=== PATIENT | male | born 1970 | race African-American/Black ===

== ENCOUNTER 2016-12-22 10:51 | Emergency (ER) ==
[2016-12-22] MEDS ORDERED: NORFLEX IM ONE (11:59)
[2016-12-22] MEDS ORDERED: TORADOL IM ONE (11:59)
--- NOTE | 2016-12-22 12:01 | PROVIDER DOCUMENTATION ---
HPI-Musculoskeletal Pain/Inj - GENERAL Chief Complaint: Extremity Pain Stated Complaint: RT THIGH INJURY Time Seen by Provider: 12/22/16 11:07 Source: patient - HX OF PRESENT ILLNESS-MUSKULOSKELTAL Nature of Presenting Problem: Pt is a 45 y/o M c chief complaint of muscle strain and quadraceps pain after he was doing martial arts stretching yesterday. Pt states his muscles in his anterior R thigh became acutely inflamed and painful after he was attempting a unique martial arts stretch. Pt denies any fall or traumatic injury. he has full ROM at his hip and knee. On arrival, pt is in minimal distress. Review of Systems - Adult - REVIEW OF SYSTEMS - ADULT Constitutional: reports: no symptoms reported. denies: chills, fatique Eyes: reports: no symptoms reported. denies: blurred vision, double vision Ears, Nose, Mouth & Throat: reports: no symptoms reported. denies: ear pain, nose pain Cardiovascular: reports: no symptoms reported. denies: chest pain, orthopnea Respiratory: reports: no symptoms reported. denies: cough, shortness of breath Gastrointestinal: reports: no symptoms reported. denies: abdominal pain, nausea Genitourinary: reports: no symptoms reported Musculoskeletal: reports: muscle aches. denies: bone pain, joint pain, joint swelling Integumentary: reports: no symptoms reported. denies: itching, rash Neurological: reports: no symptoms reported. denies: numbness, paresthesia Psychiatric: reports: no symptoms reported. denies: anxiety, emotional problems Endocrine: reports: no symptoms reported. denies: cold intolerance, heat intolerance Hematologic/Lymphatic: reports: no symptoms reported. denies: blood clots, low blood count Allergic/Immunologic: reports: no symptoms reported. denies: allergic reactions , frequent infections All Other Systems: Reviewed and Negative Past History - Adult - PAST MEDICAL HISTORY-ADULT Review of Records: reports: Old Records Reviewed, Nursing Assessment Review, Medications Reviewed, Social history reviewed & non-contributory. Major Childhood Illnesses: reports: denies history Cardiovascular: reports: HTN, [place] Respiratory: reports: asthma Gastrointestinal: reports: GERD Obstetrical/Gynecological: reports: denies history Genitourinary: reports: cancer (testicular) Musculoskeletal: reports: denies history Neurological: reports: denies history Endocrine/Immune: reports: denies history Other Conditions: reports: cataract/glaucoma (glaucoma) - PRIOR SURGERIES/PROCEDURES Surgical/Procedure History: reports: other (chostachandoritis) - IMMUNIZATION STATUS Childhood Immunizations: See Nurse Assessment Flu Vaccine: See Nurse Assessment - FAMILY HISTORY Family History: reviewed, not pertinent - SOCIAL HISTORY Smoking: denies Substance Use: none/never Alcohol Use Frequency: never Living Situation: family Physical Exam-Injury Related - Physical Exam-Injury Related Initial Vital Signs Reviewed: Yes General Appearance: appears well, alert, no apparent distress Eyes: PERRL/EOMI, pink conjunctivae Head, Ears, Nose, Mouth & Throat: normocephalic/atraumatic, moist mucous membranes, normal ENT inspection Neck: non-tender, full range of motion, supple Respiratory: chest non-tender, lungs clear, normal breath sounds Cardiovascular: normal peripheral pulses, regular rate, rhythm, no edema Chest/Breast: deferred Abdominal Exam: normal bowel sounds, non tender, soft Back Exam: normal inspection, no CVA tenderness, no vertebral tenderness Extremity: swelling (R anterior quadraceps region), tenderness Integumentary: normal color, warm/dry, blanching Neurologic: grossly normal, no motor/sensory deficits Psych/Mental Status: normal mood/affect, normal thought content, normal thought process - Glascow Coma Score Best Eye Response (Boo): (4) open spontaneously Best Verbal Response (Boo): (5) oriented Best Motor Response (Boo): (6) obeys commands Progress - PLAN OF CARE/RESULTS Progress/Plan/Lab Results: Orders Category Date Time Status Bruno Wrap Application DIRECTED Care 12/22/16 11:59 Active Crutches DIRECTED Care 12/22/16 11:59 Active Ketorolac [Toradol] Med 12/22/16 11:59 Discontinued 60 mg IM NOW ONE Orphenadrine [Norflex] Med 12/22/16 11:59 Discontinued 60 mg IM NOW ONE Vital Signs - 24 hr 12/22/16 12/22/16 12/22/16 10:54 12:23 13:22 Temperature 98.4 F Pulse Rate 96 H 78 98 H Respiratory 16 18 18 Rate Blood Pressure 152/94 146/72 145/90 O2 Sat by Pulse 100 100 99 Oximetry Departure - Departure Time of Disposition Order: 12:00 DIAGNOSIS: Quadriceps strain Qualifiers: Encounter type: initial encounter Laterality: right Qualified Code(s): S76.111A - Strain of right quadriceps muscle, fascia and tendon, initial encounter Disposition: HOME 01 Certified Medical Emergency: Emergent Condition: Stable Additional Instructions: ED Follow Up Instructions: You have been treated by a care provider in the Emergency Department. These instructions are being provided to you so you can have an understanding of how to care for yourself upon discharge. Upon discharge from the Emergency Department, you are responsible for making arrangements for follow-up care by a physician of your choice. Take all prescribed medications as directed. Return to the Emergency Department immediately for any new or worsening symptoms. You may call the Physician Referral phone number at [phone] to obtain a list of Physicians who are taking new patients. Prescriptions: Cyclobenzaprine [Flexeril] 10 mg PO TID #20 tablet Ibuprofen [Motrin] 800 mg PO Q8H PRN PRN #20 tablet PRN Reason: inflammation Omeprazole [Prilosec] 20 mg PO DAILY@0700 #20 capsule Referrals: Alicia Driscoll MD [STAFF PHYSICIAN] - Call for Appoint. -1 week Instructions: Quadriceps Strain with Rehab-SportsMed Attestation - Physician/ MIGUEL Attestation Patient care was provided by Advanced Practice Provider:: Yes Advanced Practice Provider:: Viktor Olvera Advanced Practice Provider documentation review:: The Mid-level provider documentation, treatment plan and medical decision making was reviewed by the physician who agrees with all treatment and medical decision making by the MLP.
[2016-12-22 13:23] VITALS: BP 145/90
== END 2016-12-22 13:23 | disposition home or self-care (01) ==
LOC: ED 10:51
DX: S76.111A Strain of right quadriceps muscle, fascia and tendon, initial encounter (principal); M79.651 Pain in right thigh; M79.1 Myalgia; R22.41 Localized swelling, mass and lump, right lower limb; I10 Essential (primary) hypertension; I25.2 Old myocardial infarction; J45.909 Unspecified asthma, uncomplicated; Z85.47 Personal history of malignant neoplasm of testis
CPT/HCPCS: J1885; J2360

== ENCOUNTER 2018-11-15 18:13 | Inpatient (IN) ==
[2018-11-15] MEDS ORDERED: MORPHINE IV ONE (22:06)
[2018-11-15] MEDS ORDERED: TORADOL IV ONE (22:17)
[2018-11-15] MEDS: ZOSYN 4.5 GM in NS 100 ML IV ONE (22:34)
[2018-11-15 22:46] LABS: BASO# 0.03 X1000 (0.0-0.2); BASO% 0.3 % (0.0-0.8); EOS# 0.13 X1000 (0.0-0.7); EOS% 1.1 % (0.0-10.0); HEMOGLOBIN 12.1 g/dL (14.0-18.0); IMM GRAN# 0.03 X1000 (0.0-0.04); IMM GRAN% 0.3 % (0.0-0.5); MCH 26.8 PG (27-31); MCHC 32.7 g/dL (33-37); MCV 81.9 FL (81-99); MONO# 1.23 X1000 (0.11-0.59); MONO% 10.6 % (1.7-9.3); MPV 9.8 FL (7.4-10.4); NEUT# 7.43 X1000 (1.4-6.5); NEUT% 63.7 % (42.2-75.2); PLT 314 X1000 (130-400); RBC 4.52 XMIL (4.7-6.1); RDW 15.3 % (11.5-14.5); WBC 11.65 X1000 (4.8-10.8)
[2018-11-15 23:02] LABS: AGAP 9; BUN 21 mg/dL (8-22); CALCIUM 9.1 mg/dL (8.8-10.2); CHLORIDE 101 mmol/L (98-107); COSMO 273; CREATININE 0.6 mg/dL (0.7-1.2); ESTIMATED GFR > 60; GLUCOSE 98 mg/dL (70-104); POTASSIUM 4.4 mmol/L (3.5-5.1); SODIUM 135 mmol/L (136-145); TCO2 25 mmol/L (25-35)
[2018-11-16] MEDS ORDERED: NORCO-7.5 PO PRN (00:48)
[2018-11-16] MEDS ORDERED: ZOFRAN IV PRN (00:48)
[2018-11-16] MEDS ORDERED: TYLENOL PO PRN (00:48)
[2018-11-16] MEDS ORDERED: VANCOMYCIN IV PER PHARMACY MISC SCH (01:00)
[2018-11-16] MEDS ORDERED: NS 1,000 ML IV SCH (01:00)
[2018-11-16] MEDS ORDERED: CLINDAMYCIN 600 MG/D5W 600 MG/50 ML IVPB IV SCH (01:00)
[2018-11-16] MEDS ORDERED: LOVENOX SUBQ SCH (01:00)
[2018-11-16] MEDS ORDERED: VANCOMYCIN 2,200 MG in NS 500 ML IV ONE (03:00)
[2018-11-16 04:45] LABS: UR AMPHETAMINES QUAL PRESUMPTIVE POSITIVE (NONE DETECT); UR BARBITUATES QUAL NONE DETECTED (NONE DETECT); UR BENZODIAZEPIN QUAL NONE DETECTED (NONE DETECT); UR CANNABINOIDS QUAL NONE DETECTED (NONE DETECT); UR COCAINE QUAL NONE DETECTED (NONE DETECT); UR METHADONE QUAL NONE DETECTED (NONE DETECT); UR OPIATES QUAL NONE DETECTED (NONE DETECT); UR OXYCODONE QUAL NONE DETECTED (NONE DETECT); UR PCP QUAL NONE DETECTED (NONE DETECT)
--- NOTE | 2018-11-16 06:42 | HISTORY AND PHYSICAL ---
CHIEF COMPLAINT: Right hand pain and swelling. HISTORY OF PRESENT ILLNESS: Patient comes in today after having originally foot pain and then pain in his left hand. He has a history of amphetamine drug abuse. He has previously been positive for amphetamines, methamphetamine and cocaine. He was a very poor historian, but appears to have a past medical history of coronary artery disease, hypertension, costochondritis, and tobacco abuse as well. X-ray of the hand primarily just showed soft tissue swelling. He will be admitted inpatient for left hand cellulitis. PAST MEDICAL HISTORY: See HPI. PREVIOUS SURGICAL HISTORY: Patient denies surgical history. SOCIAL HISTORY: Denies illicit drug use. He has tested positive for amphetamines, cocaine and methamphetamine. He states that he smokes about 10-12 cigars a day and drinks roughly two beers a day. FAMILY HISTORY: The patient denies any family illness in first-degree relatives. He states everybody has been healthy. ALLERGIES: Amlodipine and sulfa. HOME MEDICATIONS: Patient denies taking any home medication. REVIEW OF SYSTEMS: Patient denies any complaints other than left hand pain and edema. He did mention left foot pain when he awoke yesterday but that has subsided. A 14 point review was conducted with the patient. All other systems reviewed and negative. PHYSICAL EXAM: VITAL SIGNS: Temperature 98.4 degrees Fahrenheit, pulse 81, res 15, blood pressure 120/85. Oxygen saturation 100% on room air. GENERAL: A pleasant 47-year-old -[place] male, poor historian, alert and oriented x3, in no acute distress. HEENT: Head is atraumatic, normocephalic. Pupils are equal, round and reactive to light. Extraocular eye movements intact. Conjunctivae is pink. Oral mucosa is moist. NECK: Supple. No JVD. No thyromegaly. Trachea is midline. No cervical lymphadenopathy. CARDIOVASCULAR: S1, S2 appreciated. No murmur, gallop or rub. LUNGS: Clear to auscultation. No rhonchi, wheeze or rales. Symmetric rise and fall of respirations. ABDOMEN: Soft, nontender, nondistended. Bowel sounds present all four quadrants, normoactive. No pulsatile mass. No organomegaly. EXTREMITIES: No clubbing,cyanosis or edema. Two-plus pedal pulses bilaterally. Left upper extremity edema noted with warmth to touch. GENITOURINARY: No bladder distention. The patient voids. Otherwise deferred. NEUROLOGIC: Alert and oriented x3. No motor or focal deficits noted, otherwise nonfocal examination. DIAGNOSTIC DATA: X-ray of the hand shows soft tissue swelling. LABORATORY DATA: WBC 11.65, hemoglobin 12.1, hematocrit 37, platelet count 314,000. Sodium 135, potassium 4.4, chloride 101, carbon dioxide 25, BUN 9, creatinine 21, glucose 98. Urine toxicology screen positive for amphetamines. IMPRESSION: 1. Left hand cellulitis. 2. History of hypertension, now normotensive. 3. Questionable drug use and abuse. 4. Tobacco abuse. PLAN: 1. Admit patient to the medical floor. 2. Given clindamycin and vancomycin. 3. Normal saline at 75 mL/h. 4. Brewster 1-2 7.5 tablets q.6 hours as needed for pain. 5. Tylenol as needed for fever. 6. Further recommendations pending the patient's clinical course. Dictated by CHARLES Crow for Brandon Yousif MD cc: CHARLES Crwo MD
--- NOTE | 2018-11-16 07:57 | Diag Imaging Result Doc PS360 ---
HAND COMPLETE LEFT - 11/15/2018 INDICATION: left hand swelling TTT TECHNIQUE: Three views COMPARISON: None FINDINGS: Bones are intact and normally aligned. Soft tissues are clear. There is degeneration at the base of the thumb. IMPRESSION: Negative exam. Electronically signed by Sanjeev Maria 11/16/2018 7:55 AM
--- NOTE | 2018-11-16 08:21 | HISTORY AND PHYSICAL ---
HISTORY: The patient presents to the hospital because of swelling involving the left hand. He has been diagnosed as having cellulitis. PLAN: Maintain patient on intravenous antibiotics. Once stabilized, patient can be transitioned to oral antibiotics and possibly be discharged home. cc: Brandon Yousif MD
[2018-11-16] MEDS ORDERED: PRILOSEC PO SCH (09:00)
--- NOTE | 2018-11-16 10:44 | DISCHARGE SUMMARY ---
ADMISSION DATE: 11/16/2018 DISCHARGE DATE: 11/16/2018 DISPOSITION: Home. FOLLOW UP: With his primary care doctor. ADMISSION DIAGNOSES: 1. Left hand cellulitis. 2. History of hypertension. 3. Questionable drug abuse. DIAGNOSIS AT THE TIME OF DISCHARGE: 1. Left hand cellulitis. 2. Recreational drug abuse. 3. Tobacco abuse. DISCHARGE MEDICATIONS: 1. Amoxiclav 1000 mg p.o. q.12. 2. Naproxen 250 b.i.d. 3. Omeprazole 40 mg daily. 4. Clindamycin 300 mg p.o. q.8. 5. Multivitamin. PRESENTING COMPLAIN: Right hand pain and swelling. HISTORY OF PRESENTING COMPLAINT: Mr. Cole is a 47-year-old gentleman who is an extremely poor historian, presented to the emergency department because of swelling in his left hand but he also complains of pain almost everywhere in his joints, especially on the left side. He also refers that he has been having issues with his balance. He has been using amphetamine and cocaine to help him get good balance. The patient was admitted for observation. This morning Mr. Cole refers to continuing to have some pain but for most part he feels okay. His vitals remain stable. No fever. Temperature is 98.4 degrees. His blood pressure is 122/77, pulse 97, respirations 21, saturation is 96 on room air. General exam is completely unremarkable except for some old bruises over the left hand with minimal swelling. Mr. Cole was started on IV antibiotics. I have reviewed his lab work as well. His WBC is 11.65. All of the other cell counts are normal. Chemistry is completely unremarkable. I think he is fairly stable to be discharged. He is going to be needing antibiotics as an outpatient and he has been advised extensively on recreational drug abuse cessation as well as having a primary care doctor for regular medical care. All of the discharge instructions have been discussed with him and he voiced understanding. TIME SPENT FOR DISCHARGE: 35 minutes. cc: Darío Leblanc MD
[2018-11-16 11:00] VITALS: BP 137/95
[2018-11-16] MEDS ORDERED: CLEOCIN PO SCH ×2 (11:00→14:00)
[2018-11-16] MEDS ORDERED: AUGMENTIN XR PO SCH ×2 (11:00→21:00)
[2018-11-16] MEDS ORDERED: CLEOCIN ONE (11:13)
[2018-11-16] MEDS ORDERED: VANCOMYCIN 1,800 MG in NS 250 ML IV SCH (15:00)
[2018-11-16] MEDS ORDERED: NAPROSYN PO SCH (21:00)
--- NOTE | 2018-11-16 22:18 | PROVIDER DOCUMENTATION ---
This chart was entered by Sowmya Zapata Scribe, acting as scribe for Chema Ramos MD. HPI-General Adult - General Chief Complaint: Generalized Pain Stated Complaint: LEFT SIDE BODY PAIN Time Seen by Provider: 11/15/18 21:44 Source: patient Allergies/Adverse Reactions: Patient Allergies Allergy/AdvReac Type Severity Reaction Status Date / Time Sulfa (Sulfonamide Allergy HIVES Verified 11/15/18 20:45 Antibiotics) amlodipine besylate * AdvReac Unknown Verified 11/15/18 20:45 [From [facility]] Home Medications: Home Medication List Medication Instructions Recorded Confirmed Last Taken Type Amoxicillin/K Clavulanate E.r. 1,000 mg PO Q12HR #14 tab 11/16/18 Unknown Rx [Augmentin Xr] Clindamycin [Cleocin] 300 mg PO Q8HR #21 cap 11/16/18 Unknown Rx Multivit,Fe,Ca,FA & Min [Thera M 1 ea PO DAILY #30 tab 11/16/18 Unknown Rx Plus] Naproxen [Naprosyn] 250 mg PO BID #20 tab 11/16/18 Unknown Rx Omeprazole [Prilosec] 40 mg PO DAILY #30 cap 11/16/18 Unknown Rx - History of Present Illness -Gen Adult Nature of Presenting Problems: pt is a 47 yr old male presenting with 1 day complaint of LUE, LLE pain swelling to left hand, no known injury, woke with the pain and swelling, no other complaints Location of Pain/Injury: reports: upper extremity (LUE), hand(s) (left), lower extremity (LLE) Pain Radiation: reports: no radiation Quality of Pain: reports: aching Severity: reports: mild Onset/Duration: reports: this morning Timing: reports: still present Context/Activities at Onset: reports: sleep Modifying Factors: improves with: nothing Associated Symptoms: reports: arm pain, joint pain. denies: weakness, trouble walking Similar Symptoms Previously?: No Recently seen or treated by another doctor?: No Review of Systems - Adult - REVIEW OF SYSTEMS - ADULT Constitutional: reports: no symptoms reported Eyes: reports: no symptoms reported Ears, Nose, Mouth & Throat: reports: no symptoms reported Cardiovascular: reports: no symptoms reported Respiratory: reports: no symptoms reported Gastrointestinal: reports: no symptoms reported Genitourinary: reports: no symptoms reported Musculoskeletal: reports: bone pain, joint pain. denies: back pain, neck pain Integumentary: reports: no symptoms reported Neurological: reports: no symptoms reported Psychiatric: reports: no symptoms reported Endocrine: reports: no symptoms reported Hematologic/Lymphatic: reports: no symptoms reported Allergic/Immunologic: reports: no symptoms reported All Other Systems: Reviewed and Negative Past History - Adult - PAST MEDICAL HISTORY-ADULT Review of Records: reports: Old Records Reviewed, Nursing Assessment Review, Medications Reviewed, Social history reviewed & non-contributory. Major Childhood Illnesses: reports: denies history Cardiovascular: reports: HTN, [place] Respiratory: reports: asthma Gastrointestinal: reports: GERD Obstetrical/Gynecological: reports: denies history Genitourinary: reports: cancer (testicular) Musculoskeletal: reports: denies history Neurological: reports: denies history Endocrine/Immune: reports: denies history Other Conditions: reports: cataract/glaucoma (glaucoma) - PRIOR SURGERIES/PROCEDURES Surgical/Procedure History: reports: other (chostachandoritis) - IMMUNIZATION STATUS Childhood Immunizations: See Nurse Assessment Flu Vaccine: See Nurse Assessment - FAMILY HISTORY Family History: reviewed, not pertinent - SOCIAL HISTORY Smoking: cigarettes Provider spent 3-5 mins advising pt. on dangers of tobacco.: Discussed manners to quit use, and f/u contacts for add'l counseling. Substance Use: alcohol, marijuana Living Situation: family Physical Exam-General - PHYSICAL EXAM-ADULT Initial Vital Signs Reviewed: Yes - CONSTITUTIONAL General Appearance: appears well, alert, no apparent distress - EYES Eyes: PERRL/EOMI - HEAD, EARS, NOSE, MOUTH & THROAT HENMT: normocephalic/atraumatic, moist mucous membranes, normal ENT inspection - NECK Neck: non-tender, full range of motion, supple, normal inspection - RESPIRATORY Respiratory: chest non-tender, lungs clear, normal breath sounds - CARDIOVASCULAR Cardiovascular: normal peripheral pulses, regular rate, rhythm - GASTROINTESTINAL (ABDOMEN) Abdominal Exam: normal bowel sounds, non tender, soft - LYMPHATIC Lymphatic: no adenopathy - MUSCULOSKELETAL Back Exam: normal inspection, no CVA tenderness, no vertebral tenderness Extremity: normal range of motion, normal gait, swelling (left hand), tenderness (left hand), other (abrasion left hand.) - SKIN Integumentary: normal color, normal turgor, warm/dry - NEUROLOGIC Neurologic: grossly normal, no motor/sensory deficits - PSYCHIATRIC Psych/Mental Status: normal mood/affect, normal thought content, normal thought process, oriented x 3 Progress - PLAN OF CARE/RESULTS Progress/Plan/Lab Results: Vital Signs - 8 hr 11/15/18 18:27 Temperature 99.6 F Pulse Rate 111 H Respiratory Rate 18 Blood Pressure 130/77 O2 Sat by Pulse Oximetry 100 Laboratory Results - last 24 hr 11/15/18 11/15/18 22:30 22:30 WBC 11.65 H RBC 4.52 L Hgb 12.1 L Hct 37.0 L MCV 81.9 MCH 26.8 L MCHC 32.7 L RDW Std Deviation 15.3 H Plt Count 314 MPV 9.8 Immature Gran % (Auto) 0.3 Neut % (Auto) 63.7 Lymph % (Auto) 24.0 [place] % (Auto) 10.6 H Eos % (Auto) 1.1 Baso % (Auto) 0.3 Immature Gran # (Auto) 0.03 Neut # (Auto) 7.43 H Lymph # (Auto) 2.80 [place] # (Auto) 1.23 H Eos # (Auto) 0.13 Baso # (Auto) 0.03 Sodium 135 L Potassium 4.4 Chloride 101 Carbon Dioxide 25 Anion Gap 9 BUN 21 Creatinine 0.6 L Estimated GFR/1.73 m2 > 60 BUN/Creatinine Ratio 35 Glucose 98 Calculated Osmolality 273 Calcium 9.1 Orders Category Date Time Status HAND COMPLETE LEFT [RAD] Stat Exams 11/15/18 22:07 Taken BMP [BASIC METABOLIC PANEL] [CHEM] Stat Lab 11/15/18 22:30 Completed CBC WITH ELECTRONIC DIFF [HEME] Stat Lab 11/15/18 22:30 Completed Ketorolac [Toradol] Med 11/15/18 22:17 Discontinued 30 mg IV NOW ONE Morphine Med 11/15/18 22:06 Discontinued 4 mg IV NOW ONE Piperacillin/Tazobactam [Zosyn] 4.5 gm Med 11/15/18 22:15 Active 0.9% Sodium Chloride Inj [Ns] 100 ml IV NOW Result Diagrams: 11/15/18 22:30 11/15/18 22:30 - XRAY 1 XRAY: Left XRAY Study: Hand (HAND COMPLETE LEFT - 11/15/2018 INDICATION: left hand swelling TTT TECHNIQUE: Three views COMPARISON: None FINDINGS: Bones are intact and normally aligned. Soft tissues are clear. There is degeneration at the base of the thumb. IMPRESSION: Negative exam. Electronically signed by Sanjeev Maria 11/16/2018 7:55 AM) - CONSULTS/PCP/HOSPITALIST Notification #1 *Consult/PCP/Hospitalist*: Dr. Yousif Time Discussed: 00:32 Consult Disposition: Admit (Hx, PE, DX. discussed with the Dr. Yousif.) - CHANGE OF SHIFT REPORT (ED Provider) Report Given and Care Transferred to:: n Departure - Departure Date of Disposition Decision: 11/16/18 Time of Disposition Decision: 00:31 DIAGNOSIS: Hand abrasion, infected Qualifiers: Encounter type: initial encounter Laterality: left Qualified Code(s): S60.512A - Abrasion of left hand, initial encounter; L08.9 - Local infection of the skin and subcutaneous tissue, unspecified Disposition: HOME 01 Certified Medical Emergency: Emergent Condition: Stable - Critical Care Note This patient required my direct & personal management of CC.: No Attestation - Physician/ MIGUEL Attestation Patient care was provided by Advanced Practice Provider:: No The physician spent face to face time with patient:: Yes Advanced Practice Provider documentation review:: Supervising physician onsite and consulted in the evaluation and care of this patient. The physician did have a face to face encounter with the patient. This chart was documented by the indicated scribe, (Sowmya Zapata, Michelle) and accurately reflects the services I performed and decisions made by me, Chema Ramos MD, as attested by the provider's signature.
[2018-11-17] MEDS ORDERED: THERA M PLUS PO SCH (09:00)
== END 2018-11-16 11:16 | disposition home or self-care (01) | DRG 603 ==
LOC: ED 18:13 → SUATTDRO 11-16 00:59 → EDIPHOLD 11-16 00:59
PROVIDERS: ATTEND Internal Medicine
CPT/HCPCS: 73130; 80048; 80101; 80301; 80307; 80324; 80345; 80346; 80353; 80358; 80361; 80365; 83992; 85025; 87040; 96365; 96366; 96367; 96368; 96372; 96375; 99284; A9270; G0431; G0434; G0479; G0480; J1650; J1885; J2543; J3370; J7030; J7040; J7050